=== PATIENT | male | born 1945 | race Caucasian/White ===

== ENCOUNTER 2022-05-31 14:49 | Emergency (ER) | payer MEDICARE, SELFPAY ==
[2022-05-31 15:13] VITALS: BP 122/68; TEMP 35.8; BMI 33.0
[2022-05-31 15:19] VITALS: BP 122/68; RESP 16; TEMP 36.3; O2SAT 92; BMI 33.0
[2022-05-31 15:21] VITALS: BP 122/78; PULSE 73; RESP 16; TEMP 36.3; O2SAT 98; BMI 33.0
--- NOTE | 2022-05-31 16:02 | CRLHL7_ITS ---
For Patients: As a result of the Century Cures Act, medical imaging exams and procedure reports are released immediately into your electronic medical record. You may view this report before your referring provider. If you have questions, please contact your health care provider. INDICATION: Fall TECHNIQUE: CT head without contrast. COMPARISON: None FINDINGS: CSF spaces: Within normal limits for age. Brain parenchyma: The hassan-white differentiation is normal. No sign of mass, hemorrhage, or midline shift. Skull base and calvarium: The visualized paranasal sinuses and mastoid air cells demonstrate no acute or significant findings. The visualized orbits are grossly unremarkable. No skull fractures. IMPRESSION: Unremarkable noncontrast head CT. Dictated by Preston Warner MD @ 05/31/2022 5:22:54 PM Please note that all CT scans at this facility use dose modulation, iterative reconstruction, and/or weight-based dosing when appropriate to reduce radiation dose to as low as reasonably achievable. Dictated by: Preston Warner MD @ 05/31/2022 17:23:01 (Electronically Signed)
--- NOTE | 2022-05-31 16:55 | ED.GENADULT ---
HPI - General Adult General Time Seen by Provider: 16:55 Date Seen: 05/31/22 Chief complaint: Head Injury/Pain Stated complaint: fall, head hurts Time Seen by Provider: 05/31/22 16:49 Source: patient Mode of arrival: ambulatory Limitations: no limitations History of Present Illness HPI narrative: 77-year-old male presents today with of a fall last week. He was helping load a trailer with the [employer] carts and slipped, hit the right forehead as well as scraping his right hand right knee. He comes in today with continued intermittent headaches. These are migratory around his head and quite mild. Takes Tylenol once today and that helps his headaches. He denies nausea, vomiting, lightheadedness, dizziness, neck pain. He is not on any blood thinners. Patient has a history of hypertension, coronary artery disease. Related Data Allergies Allergy/AdvReac Type Severity Reaction Status Date / Time No Known Drug Allergies Allergy Verified 05/31/22 15:08 Review of Systems Status of ROS: Reports: 10 or more systems reviewed and unremarkable except as noted in History and below Exam Const: Vital Signs, click to edit/add: Vital Signs - 24 hr 05/31/22 15:13 05/31/22 15:19 05/31/22 15:21 Temperature 96.4 F L 97.4 F L 97.4 F L Pulse Rate [Right Pulse Oximeter] 73 Respiratory Rate 16 16 Blood Pressure [Ri ght Upper Arm] 122/68 122/68 122/78 Pulse Oximetry 92 98 Documenting provider has reviewed patient's vital signs: yes Common normals: no apparent distress, oriented x3, alert and well nourished HENMT: Common normals: normocephalic, head/scalp atraumatic, external ears normal and external nose normal Head and scalp: normocephalic and atraumatic Nose: external nose normal External ear: external ears normal Eye: Common normals: PERRL and conjunctivae normal Conjunctiva: conjunctiva(e) normal Pupil: PERRL Neck & C-Spine: Common normals: full ROM, no lymphadenopathy and supple Chest: Common normals: palpation of chest normal Resp: Common normals: normal respiratory effort and clear to auscultation bilaterally Auscultation: clear to auscultation bilaterally Cardio: Common normals: regular rate, regular rhythm and no murmurs Rate: regular rate Rhythm: regular rhythm GI: Common normals: Normal to inspection, nondistended, normoactive bowel sounds present, soft to palpation and non-tender Palpation: soft : Common normals: no CVA tenderness Bladder/kidney exam: no CVA tenderness Back & Pelvis: Common normals: no CVA tenderness and thoracic and lumbar spine normal to inspection Extremity: Common normals: normal to inspection, full ROM and no pedal edema Neuro: Common normals: oriented x3, CN's II-XII intact bilaterally and no focal motor deficits Sensorium/orientation: alert Psych: Common normals: mental status grossly normal Skin: Common normals: no rashes or lesions noted General skin exam: no rashes or lesions noted Course Vital Signs Vital signs: Initial Vital Signs Temperature 96.4 F L 05/31/22 15:13 Temperature Source Tympanic 05/31/22 15:13 Blood Pressure 122/68 05/31/22 15:13 Blood Pressure Mean 86 05/31/22 15:13 Oxygen Delivery Method 05/31/22 15:13 Vital Signs Temperature 96.4 F L 05/31/22 15:13 Blood Pressure 122/68 05/31/22 15:13 Temperature 97.4 F L 05/31/22 15:21 Pulse Rate 73 05/31/22 15:21 Respiratory Rate 16 05/31/22 15:21 Blood Pressure 122/78 05/31/22 15:21 Pulse Oximetry 98 05/31/22 15:21 Medical Decision Making MDM Narrative Medical decision making narrative: Patient seen examined prior records are reviewed. Differential diagnosis includes but not limited to skull fracture, intracranial trauma or hemorrhage, concussion. Patient presents with mild migratory headache since hitting his head last week. Not on blood thinners. No loss of consciousness, no red flag symptoms for head injury. Head CT personally reviewed and interpreted by me is negative for acute findings. Patient is stable for discharge. Medical Records Medical records reviewed: Yes I reviewed the patient's medical records Lab Data Lab results reviewed: Yes I reviewed the patient's lab results Imaging Data CT scan - head: Attestation: I have reviewed the pertinent imaging results. My impression: negative Radiologist's impression: negative Discharge Plan Discharge Clinical Impression: Concussion without loss of consciousness Patient Disposition: Home, Self-Care Condition: Stable Instructions: Concussion (ED) Activity Level: No Restrictions Discharge Diet: Regular Follow Up/Referrals: Marshall Buenrostro MD [Primary Care Provider] - Stand Alone Forms: [employer] Info Instructions
== END 2022-05-31 17:56 | disposition home or self-care (01) ==
LOC: ED 17:37
PROVIDERS: Emergency Provider Family Medicine; PCP Family Medicine
DX: S06.0X0A Concussion without loss of consciousness, initial encounter (principal); W19.XXXA Unspecified fall, initial encounter
CPT/HCPCS: 70450; 99283; 99284

== ENCOUNTER 2022-09-07 10:34 | Emergency (ER) | payer MEDICARE, SELFPAY ==
[2022-09-07] VITALS (7 sets, daily range): BP systolic 114–126; BP diastolic 70–80; PULSE 61–74; RESP 10–18; TEMP 36.3; O2SAT 93–96; BMI 34.0
--- NOTE | 2022-09-07 11:26 | ED.ARRPALP ---
HPI - Arrhythmia/Palpitations General Time Seen by Provider: 11:40 Date Seen: 09/07/22 Chief Complaint: Arrhythmia/Palpitations Stated Complaint: A-Fib Time Seen by Provider: 09/07/22 11:26 Source: patient, RN notes reviewed and old records reviewed Mode of arrival: ambulatory Limitations: no limitations History of Present Illness HPI narrative: Pablito is a very pleasant 77-year-old gentleman currently on 81 mg of aspirin a day and sotalol who has a history of AFib with RVR and ablation who comes this morning to the ER for rapid heart rate. Patient awoke at 0700 hours and recorded heart rate in the 130s. During this time he had no chest pain nor any shortness of breath. He also denied dizziness. Patient notes his ablation was in 2017 and he has done well since that time. This is the 1st time he has had an episode of AFib. He reverted to normal sinus rhythm while signing his papers and prior to his triage. He has felt well since that time. Patient has had no recent illnesses. He does not use alcohol. He has otherwise been well. Patient is on 81 mg of aspirin a day as well as sotalol for rate control. His ablation was done at [facility]. Related Data Allergies Allergy/AdvReac Type Severity Reaction Status Date / Time No Known Drug Allergies Allergy Verified 05/31/22 15:08 Review of Systems Status of ROS: Reports: 10 or more systems reviewed and unremarkable except as noted in History and below Narrative: Describes COVID in the summer of 2021 but has had complete recovery. Notes past history of GI bleed with a hemoglobin of 5.0 years ago. This was secondary to excess Ali views and patient thinks there was an area identified in the colon that appeared to have been bleeding. No subsequent problems. Const: Denies: fever, chills or fatigue Eyes: Denies: change in vision ENMT: Denies: neck pain Cardio: Reports: palpitations; Denies: chest pain, edema, swelling of feet/ankles, lightheadedness, shortness of breath with exertion or shortness of breath when lying down Resp: Denies: shortness of breath GI: Denies: abdominal pain, nausea, vomiting or blood in stool Musculo: Denies: back pain or neck pain Neuro: Denies: weakness in extremities, lack of coordination or dizziness Endo: Denies: fatigue Exam Narrative: Exam Narrative: Patient is a very pleasant well-spoken gentleman in no acute distress. Face is symmetrical and speech is clear. Neck is supple. Heart is with regular rate rhythm without additional heart sounds or murmurs. Lungs are clear bilaterally. Abdomen soft non Michel tender no pulsating mass Lower extremities without edema. Moving all extremities. Const: Vital Signs, click to edit/add: Vital Signs - 24 hr 09/07/22 10:53 Temperature 97.3 F L Pulse Rate [Pulse Oximeter] 74 Respiratory Rate 18 Blood Pressure [Ri ght Upper Arm] 119/78 Pulse Oximetry 96 Oxygen Delivery Me thod Room Air Course Course Hospital Course: At this time patient appears to have had an episode of AFib with RVR given heart rate elevated into the 130s. Converted prior to his triage here at the emergency room. We will check laboratory values to include CBC, comprehensive panel, magnesium and urinalysis. At this time lung sounds are clear and patient has no symptoms. Plan on discharge home should labs be reassuring. Vital Signs Vital signs: Initial Vital Signs Temperature 97.3 F L 09/07/22 10:53 Temperature Source Temporal Artery Scan 09/07/22 10:53 Pulse Rate 74 09/07/22 10:53 Pulse Rhythm 09/07/22 10:53 Pulse Strength 3+ Normal 09/07/22 10:53 Respiratory Rate 18 09/07/22 10:53 Blood Pressure 119/78 09/07/22 10:53 Blood Pressure Mean 91 09/07/22 10:53 Pulse Oximetry 96 09/07/22 10:53 Oxygen Delivery Method 09/07/22 10:53 Vital Signs Temperature 97.3 F L 09/07/22 10:53 Pulse Rate 74 09/07/22 10:53 Respiratory Rate 18 09/07/22 10:53 Blood Pressure 119/78 09/07/22 10:53 Pulse Oximetry 96 09/07/22 10:53 Oxygen Delivery Method 09/07/22 10:53 Temperature 97.3 F L 09/07/22 10:53 Pulse Rate 74 09/07/22 10:53 Respiratory Rate 18 09/07/22 10:53 Blood Pressure 119/78 09/07/22 10:53 Pulse Oximetry 96 09/07/22 10:53 Oxygen Delivery Method 09/07/22 10:53 MDM - Arrhythmia/Palpitations MDM Narrative Medical decision making narrative: 1. Episode of AFib with RVR-patient now in sinus rhythm since he was triaged. Troponin and EKG reassuring at this time with no evidence of acute ST or T-wave changes or evidence of increased cardiac enzyme. Electrolytes are reassuring including magnesium and patient has had no recurrence since he has been here. This is the 1st episode AFib since an ablation in 2017. 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 In the meantime would recommend a light activity day and of course returning to the ER for any further complaints or problems. 2. Disposition-home today. Return as needed. Medical Records Attestation: I reviewed the patient's medical records. Lab Data Attestation: I reviewed the patient's lab results. Labs: Lab Results 09/07/22 09/07/22 09/07/22 Range/Units 12:18 12:18 12:18 WBC 6.36 (4.50-11.00) K/uL RBC 4.66 (4.30-5.90) m/uL Hgb 14.0 (13.5-17.5) gm/dL Hct 42.3 (37.0-53.0) % MCV 91 (80-100) fL MCH 30 (26-34) pg MCHC 33 (32-36) gm/dL RDW Coeff of Jenn 13.0 (11.5-15.5) % Plt Count 248 (140-440) K/uL Neut % (Auto) 61.2 (42.0-72.0) % Lymph % (Auto) 24.7 (20-44) % [place] % (Auto) 9.6 (0.0-11.0) % Eos % (Auto) 3.9 (0.0-7.0) % Baso % (Auto) 0.3 (0.0-3.0) % Neut # (Auto) 3.89 (1.7-7.0) K/uL Lymph # (Auto) 1.57 (0.90-2.90) K/uL [place] # (Auto) 0.60 (0.00-0.90) K/UL Eos # (Auto) 0.25 (0.00-0.50) K/uL Baso # (Auto) 0.02 (0.00-0.30) K/uL Abs Immat Gran (auto) 0.02 (0.00-0.30) K/uL Sodium 139 (135-149) mmol/L Potassium 4.6 (3.6-5.1) mmol/L Chloride 107 (96-114) mmol/L Carbon Dioxide 26 (20-32) mmol/L BUN 15 (7-30) mg/dL Creatinine 0.7 (0.5-1.5) mg/dL Estimated Creat Clear 60.88 Estimated GFR 94 ml/min Glucose 98 (60-115) mg/dL Calcium 8.7 (8.4-10.6) mg/dL Magnesium 2.1 (1.5-2.6) mg/dL Total Bilirubin 0.4 (0.1-1.5) mg/dL AST 17 (12-35) U/L ALT 12 (4-50) U/L Alkaline Phosphatase 73 (40-150) U/L Total Protein 6.9 (6.0-8.3) g/dL Albumin 3.9 (3.3-5.0) g/dL POC Troponin I 0.00 L (0.01-0.04) ng/ml ECG Data ECG interpretation date: 09/07/22 ECG interpretation time: 14:11 Interpretation: EKG shows sinus rhythm at a rate of 64. No acute ST or T-wave changes are noted. Good inappropriate R-wave progression. Discharge Plan Discharge Clinical Impression: Atrial fibrillation Patient Disposition: Home, Self-Care Condition: Improved Additional Instructions: Take it easy today. Follow-up with your intermediate school teacher should this happen again. Recommend good hydration. Follow Up/Referrals: Marshall Buenrostro MD [Primary Care Provider] - Stand Alone Forms: [employer] Info Instructions
[2022-09-07 12:27] LABS: Basophils Absolute Auto 0.02 K/uL (0.00-0.30); Basophils Percent Auto 0.3 % (0.0-3.0); Eosinophils Absolute Auto 0.25 K/uL (0.00-0.50); Eosinophils Percent Auto 3.9 % (0.0-7.0); Hematocrit 42.3 % (37.0-53.0); Immature Granulocytes Abs Auto 0.02 K/uL (0.00-0.30); Lymphocytes Absolute Auto 1.57 K/uL (0.90-2.90); Lymphocytes Percent Auto 24.7 % (20-44); Mean Corpuscular HGB Conc 33 gm/dL (32-36); Mean Corpuscular Hemoglobin 30 pg (26-34); Mean Corpuscular Volume 91 fL (80-100); Monocytes Percent Auto 9.6 % (0.0-11.0); Neutrophils Absolute Auto 3.89 K/uL (1.7-7.0); Neutrophils Percent Auto 61.2 % (42.0-72.0); Platelet Count* 248 K/uL (140-440); Red Blood Count 4.66 m/uL (4.30-5.90); White Blood Count* 6.36 K/uL (4.50-11.00)
[2022-09-07 12:30] LABS: Slide Review Reflex No
[2022-09-07 13:36] LABS: Albumin* 3.9 g/dL (3.3-5.0)
[2022-09-07 13:37] LABS: Chloride* 107 mmol/L (96-114); Potassium* 4.6 mmol/L (3.6-5.1); Sodium* 139 mmol/L (135-149)
[2022-09-07 13:39] LABS: Bilirubin Total* 0.4 mg/dL (0.1-1.5); Carbon Dioxide* 26 mmol/L (20-32); Creatinine* 0.7 mg/dL (0.5-1.5); Est. Creatinine Clearance* 60.88; Estimated Glomerular Filt Rate 94 ml/min
[2022-09-07 13:40] LABS: Alanine Aminotransferase* 12 U/L (4-50); Alkaline Phosphatase* 73 U/L (40-150); Aspartate Amino Transferase* 17 U/L (12-35); Blood Urea Nitrogen* 15 mg/dL (7-30); Calcium* 8.7 mg/dL (8.4-10.6); Glucose* 98 mg/dL (60-115); Magnesium* 2.1 mg/dL (1.5-2.6); Total Protein* 6.9 g/dL (6.0-8.3)
[2022-09-07 14:05] LABS: Appearance Urine Clear (Clear); Bilirubin Urine Negative (Negative); Blood Urine Negative (Negative); Color Urine Yellow (Yellow); Glucose Urine Negative (Negative); Ketones Urine Negative (Negative); Leukocyte Esterase Urine Negative (Negative); Nitrite Urine Negative (Negative); Protein Urine Negative (Negative); Urobilinogen Urine 0.2 (0.2-1.0); pH Urine 5.5 (5.0-8.5)
== END 2022-09-07 14:15 | disposition home or self-care (01) ==
PROVIDERS: Emergency Provider Family Medicine; PCP Family Medicine
DX: I48.91 Unspecified atrial fibrillation (principal)
CPT/HCPCS: 36415; 80053; 81003; 83735; 85025; 93005; 94761; 99284

== ENCOUNTER 2025-06-14 08:53 | Emergency (ER) | payer MEDICARE, SELFPAY ==
[2025-06-14] VITALS (34 sets, daily range): BP systolic 106–141; BP diastolic 71–98; PULSE 53–134; RESP 9–24; TEMP 36.4; O2SAT 81–100; BMI 31.6
--- OUTSIDE RECORDS SUMMARY | 2025-06-14 08:55 | XMS_ITS | Clinical Summary ---
Author Organization [facility] Address [address] [place] [id number] Care Team Providers Care Brokerage Manager Name Role Phone Ignacio Ramírez MD Unavailable [phone] Gayatri Brown NP Unavailable [phone] Adrianna Thompson Unavailable [phone] Dayna Gibbs Unavailable [phone] Rajinder Nguyễn MD Unavailable Marshall Buenrostro MD Primary Care Provider [phone] Allergies No known active allergies Medications medication order composer Iron tablets. Taking 1 tab daily 0 09/04/20 18 Active sildenafiL, pulm.hypertensi on, (REVATIO) 20 mg tabletIndicatio ns:Other male erectile dysfunction TAKE 1 TABLET 30 TO 90 MINUTES BEFORE SEX NEEDED. MAY INCREASE UP TO MAX OF 5 TABLETS NEEDED BEFORE SEX. DO NOT TAKE DAILY. 30 Tablet 3 01/28/20 25 Active sotaloL (BETAPACE) 80 mg tabletIndicatio ns:Paroxysmal A-fib (HC) Take 1 Tablet (80 mg) by mouth two times daily before meals. 180 Tablet 3 05/30/20 25 Active apixaban (Eliquis) 5 mg tabletIndicatio ns:Paroxysmal A-fib (HC) Take 1 Tablet (5 mg) by mouth two times daily. 180 Tablet 3 05/30/20 25 Active apixaban (Eliquis) 5 mg tabletIndicatio ns:Paroxysmal A-fib (HC) Take 1 Tablet (5 mg) by mouth two times daily. 180 Tablet 05/19/20 25 Active sotaloL 80 mg tabletIndicatio ns:Paroxysmal A-fib (HC) Take 1 Tablet (80 mg) by mouth two times daily before meals. 180 Tablet 05/19/20 25 Active Eliquis 5 mg tabletIndicatio ns:Paroxysmal A-fib (HC) TAKE ONE TABLET BY MOUTH TWICE A DAY 180 Tablet 02/04/20 25 025 Discontinued sotaloL 80 mg tabletIndicatio ns:Paroxysmal A-fib (HC) TAKE ONE TABLET BY MOUTH TWICE A DAY BEFORE MEALS 180 Tablet 02/04/20 25 025 Discontinued Active Problems Problem Noted Date Diagnosed Date Pseudophakia of both eyes 06/05/2023 Other male erectile dysfunction 05/21/2023 Overview (05/21/2023): April 2023: new diagnosis, trying Sildenafil (generic Viagra). 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 Iron, monitor, tx if has a sig rebleed 09/25/17 Adenomatous colon polyp 08/25/2017 Overview (06/14/2023): Colonoscopy 08/2017 normal repeat in 5 years Colonoscopy 05/2023 TA, normal random biopsies, no follow up needed Posterior vitreous detachment of left eye 2016 E. coli UTI (urinary tract infection) 12/25/2013 Paroxysmal atrial fibrillation 10/22/2012 Overview (09/18/2017): Episodic: approximately 2004 and again April 2012: cardioversion at [facility] ER to normal sinus rhythm. ~ [facility] ER Visit November 2013 atrial fibrillation with RVR, converted with Diltiazem. December 2013: Dr. Ramírez Cardiology consult. Continue Aspirin, do echocardiogram and Stress test. Sotalol started. Sep 2015: Atrial fibrillation with RVR. Sep 2016: atrial fibrillation again. Nov 2016: ablation. February 2017: Dr Nguyễn stopped sotalol and continue anticoag indefinitely ( on xarelto) Aug 2017: Because of his bleeding issues, Dr. Ramírez holding Xarelto and aspirin. GI consult for GI Bleeding work up pending. Resolved Problems Problem Noted Date Diagnosed Date Resolved Date Centrilobular emphysema 02/10/202102/18 Overview (02/10/2021): January 2021: emphysema changes on CT Scan. COPD mixed type 07/25/2017 03/01/2024 Encounters Date Type Department Care Team Description 05/30/2025 1:00 PM CDT Office Visit [facility] [id number] [place] [id number] Ignacio Ramírez MD Follow Up (1 year follow up) 05/30/2025 Travel 05/19/2025 10:00 AM CDT Office Visit [facility] [address] [address] [place] [address] Mayito Calderon, OD Eye Exam (CEE) 05/19/[address] [facility] [id number] [place] [id number] Ignacio Ramírez MD Refill Request (Eliquis, Sotalol) 05/19/2025 Travel from Last 3 Months Immunizations Immunization Administration Dates Next Due COVID-19 vaccine (Pfizer-Bio NTech 30mcg/0.3mL) 12YO+ BIVALENT PF, MDV 05/19/2023 COVID-19 vaccine (Pfizer-BioNTBeijing [employer] 30mcg/0.3mL) P F, MDV 01/23/2021,01/02/2021 Influenza, High-dose Inactivated 12/01/2016 Influenza, Inactivated AIIV4 (Age 65+ Years) Preserv Free 10/20/2023,10/06/2021 Influenza, Inactivated IIV3 (Age 65+ Years) Preserv Free 07/14/2017 Pneumococcal Poly,23-Valent (Pneumovax) 12/14/19 12 Pneumococcal conj 13-Valent (Prevnar 13) 017 Td, Preservative Free (age >= 7 Years) 7 Zoster (Shingrix-RZV, recombinant) 05/18/2021, Zoster (Zostavax-ZVL, live) 06/12/2012 Family History Medical History Relation Name Comments Alpha-1 antitrypsin deficiency Brother 1 homozygous Alpha-1 antitrypsin deficiency Brother 2 homozygous Cancer-breast Daughter Cancer Maternal Grandfather Kidney cancer Maternal Uncle 1 Cancer Maternal Uncle 2 Dementia Mother Genetic Other lung Disease~cataracts-father,gran dfather Cancer-colon No Family History Cancer-ovarian No Family History Cancer-prostate No Family History Relation Name Status Comments Brother 1 Brother 2 Brother 3 Alive Brother 4 Alive Daughter Father Maternal Grandfather Maternal Uncle 1 Maternal Uncle 2 Alive Mother Other Sister 1 Sister 2 Social History Tobacco Use Types Packs/Day Years Used Date Smoking Tobacco: Former Cigarettes 1 30 0 04/20/1957 - 04/20/1987 Smokeless Tobacco: Never Tobacco Cessation:Counseling Given: Yes Comments:quit in 1986 Alcohol Use Standard Drinks/Week Comments No 0 (1 standard drink = 0.6 oz pur e alcohol) quit in 1977 PHQ-2 Answer Date Recorded PHQ-2 TOTAL SCORE 0 01/27/2025 Social Connections Answer Date Recorded Do you often feel lonely or isolated from those around you? 0 01/27/2025 Financial Resource Strain Answer Date R ecorded Difficulty of Paying Living Expenses 3 01/27/2025 Difficulty of Paying Living Expenses Not on file 01/27/2025 Food Insecurity Answer Date Recorded Do you worry your food will run out before you are able to buy more? 1 01/27/2025 Transportation Needs Answer Date Record ed Does lack of transportation keep you from medica l appointments? 1 01/27/2025 Does lack of transportation keep you from work, meetings or getting things that you need? 1 01/27/2025 Housing Stability Answer Date Recorded What is your housing situation today? 1 01/27/2025 Utilities Answer Date Recorded Do you have trouble paying f or utilities (for example, heat, electricity, water, phone)? 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 Gender Identity Not on file Sexual Orientation Not on file Travel History Travel Start Travel End [place] 05/26/2025 05/29/2025 Obstetrics History Last Filed Vital Signs Vital Sign Reading Time Taken Comments Blood Pressure 130/72 05/30/2025 12:57 PM CDT Pulse 77 05/30/2025 12:57 PM CDT Temperature 36.3 C (97.4 F) 02/28/2023 8:30 AM CDT Respiratory Rate 18 05/30/2025 12:57 PM CDT Oxygen Saturation 97% 05/30/2025 12:57 PM CDT Inhaled Oxygen Concentration - - Weight 102.1 kg (225 lb) 05/30/2025 12:57 PM CDT Height 177.8 cm (5' 10) 05/30/2025 12:57 PM CDT Body Mass Index 32.28 05/30/2025 12:57 PM CDT Plan of Treatment Health Maintenance Due Date Last Done Comments Tetanus booster 02/12/2017 02/12/2007 RSV vaccine for adults or (1 - 1-dose 75+ series) 2019 COVID-19 vaccine series ( season) 2024 10/20/2023, 05/19/2023, 11/23/2021, Additional history exists Influenza Vaccine (#1) 2025 , 10/06/2021, 07/14/2017, Additional history exists Depression screening for age 12+ 01/27/2026 01/27/2025, 05/19/2023, 02/09/2021, Additional history exists Medicare Wellness for age 65+ 01/28/2026 01/27/2025, 05/19/2023, 02/04/2021, Additional history exists BMI (ht and wt on same day) for age 18+ 05/30/2026 05/30/2025, 01/27/2025, 03/27/2024, Additional history exists Pneumococcal series for age 50+ Completed 07/14/2017, 12/14/2011 Zoster (shingles) series for age 50+ Completed 05/18/2021, 02/09/2021, 06/12/2012 Hepatitis B series for 19+ Aged Out N o longer eligible based on patient's age to complete this topic Medical Devices Implanted Type Area [employer] Operator Device Identifier Shelf Expiration Date Model / Serial / Lot Iol [place] +18.5 Acrysof Iq Sn60wf - [id number] Implanted:Qty: 1 on 04/05/2021 by José Manuel Hernandez MD at [facility] Right: Eye [employer] 12/07/2025 SN60WF.18. 5 / [id number] / Iol [place] +19.5 Acrysof Iq Sn60wf - [id number] Implanted:Qty: 1 on 04/26/2021 by José Manuel Hernandez MD at [facility] Left: Eye [employer] 01/20/2026 SN60WF.19. 5 / [id number] / Procedures Procedure Name Priority Date/Time Associated Diagnosis Comments EKG 12 LEAD Routine 05/30/2025 12:00 AM CDT Paroxysmal A-fib (HC) from Last 3 Months Results * EKG 12 LEAD (05/30/2025 12:00 AM CDT) Ignacio Ramírez MD EKG ORD Final Re sult from Last 3 Months Insurance MEDICARE PART A HB ONLY [facility] Advance Directives * Full Code (Latest Code Status on File) Date Activated Date Inactivated Comments 04/26/2021 9:44 AM 04/26/2021 2:07 PM Question Answer Comments Code Status Discussion: Not Discussed * Full Code Date Activated Date Inactivated Comments 04/05/2021 10:04 AM 04/05/2021 2:34 PM Question Answer Comments Code Status Discussion: Not Discussed * Full Code Date Activated Date Inactivated Comments 08/28/2017 2:00 PM 08/30/2017 4:13 PM Question Answer Comments Code Status Discussion: Not Discussed * Full Code Date Activated Date Inactivated Comments 11/30/2016 6:08 AM 12/01/2016 1:34 PM * Full Code Date Activated Date Inactivated Comments 09/29/2016 6:57 AM 09/29/2016 2:11 PM Care Teams Brokerage Manager Relationship Specialty Start Date End Date Marshall Buenrostro MD [address] [place] [id number] PCP - General Family Practice 05/30/25 Ignacio Ramírez MD [address] [place] [address] [place] [address] Consulting Physician Cardiovascular Disease 01/06/14 Gayatri Brown NP [address] [place] [address] Cardiology - EP Cardiovascular Disease 11/21/17 Adrianna Thompson PA [address] [place] [address] Cardiology Cardiovascular Disease 11/21/17 Dayna Gibbs PA [address] [place] [address] Cardiology Cardiovascular Disease 11/21/17 Rajinder Nguyễn MD [address] [facility] [address] [place] [address] Cardiology - EP Cardiology - Electrophysiology 11/21/17
--- NOTE | 2025-06-14 09:12 | CRLHL7_ITS ---
For Patients: As a result of the Century Cures Act, medical imaging exams and procedure reports are released immediately into your electronic medical record. You may view this report before your referring provider. If you have questions, please contact your health care provider. INDICATION: Palpitations. TECHNIQUE: Chest 1 views. COMPARISON: 09/21/2015. FINDINGS: Cardiovasculature and mediastinum: Heart size is normal. Unremarkable mediastinum. Lungs and pleural spaces: Lungs are clear. No sign of infiltrate or mass. No sign of pleural effusion. No pneumothorax. Bones and soft tissues: No significant findings. IMPRESSION: Negative chest. Dictated by Justin Israel MD @ 06/14/2025 9:36:15 AM (Electronically Signed)
--- NOTE | 2025-06-14 09:12 | ED.ARRPALP ---
HPI - Arrhythmia/Palpitations General Chief Complaint: Arrhythmia/Palpitations Stated Complaint: Afib Time Seen by Provider: 06/14/25 09:03 History of Present Illness HPI narrative: Patient is an 80-year-old gentleman with distant history of atrial fibrillation who is status post distant history of ablation. He is chronically on Eliquis. He has an eaten since last night. He woke up in the middle night with an irregular pulse and suspects that he is in atrial fibrillation again. Upon arrival is EKG shows atrial fibrillation with a rate of 115. He has had no chest pain no shortness a breath orthopnea no PND no nausea no vomiting. No other major complaints. Patient has otherwise been in his usual state of health. Related Data Home Medications ?Medication ?Instructions ?Recorded ?Confirmed apixaban 5 mg tablet (Eliquis) 5 mg PO BID 06/14/25 06/14/25 sotalol 80 mg tablet 80 mg PO BID 06/14/25 06/14/25 Allergies Allergy/AdvReac Type Severity Reaction Status Date / Time No Known Drug Allergies Allergy Verified 06/14/25 09:12 Review of Systems Status of ROS: Reports: 10 or more systems reviewed and unremarkable except as noted in History and below PFSH PFS Social History Smoking Status: Smoker, status unknown Exam Narrative: Exam Narrative: EXAM GENERAL: Patient appears comfortable and well. EYES: No scleral icterus. ENT: Tympanic membranes and oropharynx normal. THYROID: no thyroid nodules or thyromegaly. LYMPH: No supraclavicular or cervical lymphadenopathy. SKIN: Visible skin seen during exam normal or with benign process only. EXT: No dependent lower extremity pedal edema. HEART: Irregularly irregular no rubs clicks gallops or murmurs. LUNGS: Clear to auscultation bilaterally with no crackles or wheezes. ABD: Soft, non tender, non distended. PSYCH: Good eye contact, speech is not pressured. Const: Vital Signs, click to edit/add: Vital Signs - 24 hr 06/14/25 09:07 Temperature 97.6 F Pulse Rate [Apical ] 134 H Respiratory Rate 16 Blood Pressure [Le ft Upper Arm] 120/93 H Pulse Oximetry 95 Oxygen Delivery Me thod Room Air Course Course ED Course: Patient seen and examined. Troponin CBC comprehensive metabolic panel chest x-ray pending. Vital Signs Vital signs: Initial Vital Signs Temperature 97.6 F 06/14/25 09:07 Temperature Source Temporal Artery Scan 06/14/25 09:07 Pulse Rate 134 H 06/14/25 09:07 Pulse Rhythm Irregular 06/14/25 09:07 Respiratory Rate 16 06/14/25 09:07 Blood Pressure 120/93 H 06/14/25 09:07 Blood Pressure Mean 102 06/14/25 09:07 Blood Pressure Position Semi-Fowlers 06/14/25 09:07 Pulse Oximetry 95 06/14/25 09:07 Oxygen Delivery Method Room Air 06/14/25 09:07 Vital Signs Temperature 97.6 F 06/14/25 09:07 Pulse Rate 134 H 06/14/25 09:07 Respiratory Rate 16 06/14/25 09:07 Blood Pressure 120/93 H 06/14/25 09:07 Pulse Oximetry 95 06/14/25 09:07 Oxygen Delivery Method Room Air 06/14/25 09:07 Temperature 97.6 F 06/14/25 09:07 Pulse Rate 134 H 06/14/25 09:07 Respiratory Rate 16 06/14/25 09:07 Blood Pressure 120/93 H 06/14/25 09:07 Pulse Oximetry 95 06/14/25 09:07 Oxygen Delivery Method Room Air 06/14/25 09:07 MDM - Arrhythmia/Palpitations MDM Narrative Medical decision making narrative: Patient is an 80-year-old gentleman who comes in with atrial fibrillation with RVR. He is on anticoagulation with apixaban. Also on sotalol. He has been in sinus rhythm for the past 3 years and status post ablation in 2017. His laboratory studies looked reasonable is troponin 0.05 and was not repeated as it would be elevated due to the cardioversion. He does not have any chest pain or shortness of breath. He had otherwise reasonable laboratory studies and chest x-ray. His vital signs were stable before the cardioversion and with the patient asleep after being treated with propofol fall he was treated with synchronized cardioversion with 120 joules. Given as 1 time dose and he converted back to sinus rhythm rate of 60. Patient awoke from anesthesia well. 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 Lab Data Labs: Lab Results 06/14/25 Range/Units 09:20 WBC 7.51 (4.50-11.00) K/uL RBC 4.76 (4.30-5.90) m/uL Hgb 14.3 (13.5-17.5) gm/dL Hct 43.4 (37.0-53.0) % MCV 91 (80-100) fL MCH 30 (26-34) pg MCHC 33 (32-36) gm/dL RDW Coeff of Jenn 12.5 (11.5-15.5) % Plt Count 281 (140-440) K/uL Neut % (Auto) 67.9 (42.0-72.0) % Lymph % (Auto) 19.2 L (20-44) % Wood % (Auto) 9.6 (0.0-11.0) % Eos % (Auto) 2.3 (0.0-7.0) % Baso % (Auto) 0.7 (0.0-3.0) % Neut # (Auto) 5.11 (1.7-7.0) K/uL Lymph # (Auto) 1.40 (0.90-2.90) K/uL Wood # (Auto) 0.70 (0.00-0.90) K/UL Eos # (Auto) 0.17 (0.00-0.50) K/uL Baso # (Auto) 0.05 (0.00-0.30) K/uL Abs Immat Gran (auto) 0.02 (0.00-0.30) K/uL Imm/Tot Granulo (auto) 0.3 % Sodium 140 (135-149) mmol/L Potassium 3.9 (3.6-5.1) mmol/L Chloride 107 (96-114) mmol/L Carbon Dioxide 28 (20-32) mmol/L Anion Gap 5 L (7-15) mEq/L BUN 16 (7-30) mg/dL Creatinine 0.7 (0.5-1.5) mg/dL Estimated Creat Clear 59.82 Estimated GFR 93 ml/min Glucose 111 (60-115) mg/dL Calcium 9.1 (8.4-10.6) mg/dL Total Bilirubin 0.6 (0.1-1.5) mg/dL AST 24 (12-35) U/L ALT 14 (4-50) U/L Alkaline Phosphatase 60 (40-150) U/L Troponin I 0.05 H (0.01-0.04) ng/mL Total Protein 7.2 (6.0-8.3) g/dL Albumin 4.0 (3.3-5.0) g/dL Discharge Plan Discharge Clinical Impression: Atrial fibrillation Patient Disposition: Home, Self-Care Condition: Stable Instructions: A-fib (Atrial Fibrillation) (ED) Additional Instructions: Continue current medications Follow-up with your doctor as needed. Activity Level: No Restrictions Discharge Diet: Regular Prescriptions: No Action sotalol 80 mg tablet 80 mg PO BID Eliquis 5 mg tablet 5 mg PO BID Follow Up/Referrals: Marshall Buenrostro MD [Primary Care Provider, Family Practice] Stand Alone Forms: MyHealth Info Instructions
[2025-06-14 09:25] LABS: Hematocrit 43.4 % (37.0-53.0); Hemoglobin* 14.3 gm/dL (13.5-17.5); Immature Granulocytes Abs Auto 0.02 K/uL (0.00-0.30); Immature Granulocytes Pct Auto 0.3 %; Mean Corpuscular HGB Conc 33 gm/dL (32-36); Mean Corpuscular Hemoglobin 30 pg (26-34); Mean Corpuscular Volume 91 fL (80-100); RDW Coefficient of Variation % 12.5 % (11.5-15.5); Red Blood Count 4.76 m/uL (4.30-5.90); White Blood Count* 7.51 K/uL (4.50-11.00)
[2025-06-14 09:26] LABS: Lymphocytes Absolute Auto 1.40 K/uL (0.90-2.90); Slide Review Reflex No
[2025-06-14 09:46] LABS: Albumin* 4.0 g/dL (3.3-5.0); Chloride* 107 mmol/L (96-114)
[2025-06-14 09:47] LABS: Potassium* 3.9 mmol/L (3.6-5.1); Sodium* 140 mmol/L (135-149)
[2025-06-14 09:49] LABS: Blood Urea Nitrogen* 16 mg/dL (7-30); Creatinine* 0.7 mg/dL (0.5-1.5); Est. Creatinine Clearance* 59.82; Estimated Glomerular Filt Rate 93 ml/min
[2025-06-14 09:50] LABS: Alanine Aminotransferase* 14 U/L (4-50); Alkaline Phosphatase* 60 U/L (40-150); Anion Gap 5 mEq/L (7-15); Aspartate Amino Transferase* 24 U/L (12-35); Bilirubin Total* 0.6 mg/dL (0.1-1.5); Calcium* 9.1 mg/dL (8.4-10.6); Carbon Dioxide* 28 mmol/L (20-32); Glucose* 111 mg/dL (60-115); Total Protein* 7.2 g/dL (6.0-8.3)
[2025-06-14] MEDS: 0.9 % SODIUM CHLORIDE 500 ML 500 ML IV (10:45)
--- NOTE | 2025-06-14 10:57 | P.ANES_ITS ---
Anesthesia Charges Start Date/Time Anesthesia Start Date: 06/14/25 Anesthesia Start Time: 10:35 Stop Date/Time Anesthesia Stop Date: 06/14/25 Anesthesia Stop Time: 10:55 Summary Emergency: REGISTRAR MUSEUM Extremes of Age - Over 70 or under 1: REGISTRAR MUSEUM Coding CPT Codes CPT Codes: ANESTH CORRECT HEART RHYTHM - 05512 ([id number]) P3 - PATIENT W/SEVERE SYS DISEASE, QZ - REGISTRAR MUSEUM SVC W/O BLUE SPLIT TRIMMER BY Additional Codes: Summary - Emergency: REGISTRAR MUSEUM ([id number]) Summary - Extremes of Age - Over 70 or under 1: REGISTRAR MUSEUM ([id number])
--- NOTE | 2025-06-14 10:57 | W.ANESCHARGE ---
Anesthesia Charges Start Date/Time Anesthesia Start Date: 06/14/25 Anesthesia Start Time: 10:35 Stop Date/Time Anesthesia Stop Date: 06/14/25 Anesthesia Stop Time: 10:55 Summary Emergency: TRANSLATOR/INTERPRETER Extremes of Age - Over 70 or under 1: TRANSLATOR/INTERPRETER Coding CPT Codes CPT Codes: ANESTH CORRECT HEART RHYTHM - 26329 ([id number]) P3 - PATIENT W/SEVERE SYS DISEASE, QZ - TRANSLATOR/INTERPRETER SVC W/O BINDER FIXER BY Additional Codes: Summary - Emergency: TRANSLATOR/INTERPRETER ([id number]) Summary - Extremes of Age - Over 70 or under 1: TRANSLATOR/INTERPRETER ([id number])
== END 2025-06-14 12:10 | disposition home or self-care (01) ==
PROVIDERS: Emergency Provider Internal Medicine; PCP Family Medicine
DX: I48.91 Unspecified atrial fibrillation (principal)
CPT/HCPCS: 92960; 00410; 36415; 71045; 80053; 84484; 85025; 93005; 99100; 99140; 99284; 99285; J7030